=== PATIENT | female | born 1985 ===

== ENCOUNTER 2024-04-06 08:18 | Outpatient (REF) | payer OTHER, SELFPAY ==
--- NOTE | 2024-04-06 08:25 | EMG_ITS ---
Bilateral median and ulnar motor and sensory studies were performed. Bilateral radial and median and lateral antecubital sensory studies were performed and paraspinal muscles were tested with a needle. IMPRESSION: 1. 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 2. Mild bilateral ulnar nerve slowing across elbow. MD ZHANG Rose/FRANKIE / [id number]
== END 2024-04-06 08:19 | disposition home or self-care (01) ==
LOC: HO.NEURO 08:18
PROVIDERS: PCP Internal Medicine; Visit Provider Internal Medicine
DX: G56.03 Carpal tunnel syndrome, bilateral upper limbs (principal)
CPT/HCPCS: 95886; 95913

== ENCOUNTER 2025-03-28 13:42 | Outpatient (REF) | payer OTHER, SELFPAY ==
[2025-03-28 13:56] LABS: MANUAL DIFF FLAG NO
[2025-03-28 14:38] LABS: Basophils Absolute Auto 0.1 X10*3/uL (0.0-0.2); Basophils Percent Auto 0.8 % (0-2); Eosinophils Absolute Auto 0.1 X10*3/uL (0.0-0.4); Hematocrit 36.1 % (37.0-47.0); Hemoglobin 11.2 g/dl (12.0-16.0); Imm Gran Abs Auto 0.04 X10*3/uL (0.00-0.03); Imm Gran Pct Auto 0.6 % (0.0-0.4); Lymphocytes Percent Auto 14.4 % (20-40); Mean Corpuscular Hemoglobin 24.3 pg (27.0-33.0); Mean Corpuscular Volume 78.5 fL (80.0-98.0); Mean Platelet Volume 10.3 fL (9.4-12.3); Monocytes Absolute Auto 0.7 X10*3/uL (0.1-1.2); Monocytes Percent Auto 9.3 % (2-11); Neutrophils Absolute Auto 5.4 x10*3/uL (2.0-8.3); Neutrophils Percent Auto 73.9 % (45-73); Platelet Count 339 X10*3/uL (160-400); Red Cell Distribution Width 14.4 % (11.0-16.0); White Blood Count 7.2 X10*3/uL (4.8-10.8)
[2025-03-28 15:01] LABS: Rheumatoid Factor < 13.0 IU/mL (<15.0)
[2025-03-28 15:04] LABS: Alanine Aminotransferase 14 U/L (0-31); Albumin Level 4.1 g/dL (3.5-5.0); Alkaline Phosphatase 63 U/L (39-117); Anion Gap 13 (12-20); Aspartate Amino Transferase 20 U/L (5-31); Bilirubin Total 0.5 mg/dL (0.0-1.0); Blood Urea Nitrogen 14 mg/dL (9-16); Calcium 9.1 mg/dL (8.4-10.2); Carbon Dioxide 22 mmol/L (22-29); Chloride 109 mmol/L (96-108); Estimated Glomerular Filt Rate > 60; Glucose Random 97 mg/dL (60-115); Potassium 3.8 mmol/L (3.3-5.1); Sodium 140 mmol/L (135-145); Total Protein 7.3 g/dL (6.5-8.0)
--- OUTSIDE RECORDS SUMMARY | 2025-03-28 15:15 | XMS_ITS | Clinical Summary ---
Author Organization [facility] Address [address] [place] [address] Phone Care Team Providers Care Power Press Operator Name Role Phone Physician, No Pcp Primary Care Provider Unavaila ble Allergies Active Allergy Reactions Criticality Noted Date Comments Aspirin 12/10/2024 Social History Tobacco Use Types Packs/Day Years Used Date Smoking Tobacco: Never Smokeless Tobacco: Never Tobacco Cessation:Counseling Given: Not Answered Comments Unknown Sex and Gender Information Value Date Recorded Sex Assigned at Female 12/10/2024 8:11 PM EST Legal Sex Female 9:08 AM EST Gender Identity Female 12/10/2024 8:11 PM EST Sexual Orientation Straight 12/10/2024 8 :11 PM EST Obstetrics History Last Filed Vital Signs Vital Sign Reading Time Taken Comments Blood Pressure 106/64 12/10/2024 9:23 PM EST Pulse 76 12/10/2024 9:23 PM EST Temperature 36.8 ??C (98.2 ??F) 12/10/2024 9:23 PM ES T Respiratory Rate 16 12/10/2024 9:23 PM EST Oxygen Saturation 100% 12/10/2024 9:23 PM EST Inhaled Oxygen Concentration - - Weight 61.2 kg (135 lb) 12/10/2024 5:04 PM EST Height 160 cm (5' 3 ) 12/10/2024 5:04 PM EST Body Mass Index 23.91 12/10/2024 5:04 PM EST Plan of Treatment Health Maintenance Due Date Last Done Comments Breast Cancer Screening 1983 DTaP,Tdap,and Td Vaccines (1 - Tdap) 2002 Hepatitis B Vaccines (1 of 3 - 19+ 3-dose series) 2002 Cervical Cancer Screening: P ap Smear 2004 Depression Screening 10/27/2022 HIV Screening 10/27/2022 Hepatitis C Screening 10/27/2022 Social Influencers of Health Screening 10/27/2022 COVID-19 Vaccine (4 - 2023-2 5 season) 2024 12/21/2021, 04/04/2021, 02/28/2021 Influenza Vaccine (Season Ended) 2025 HIB Vaccines Aged Out No longer eligi ble based on patient's age to complete this topic HPV Vaccines Aged Out No longer eligi ble based on patient's age to complete this topic Hepatitis A Vaccines Aged Out No long er eligible based on patient's age to complete this topic IPV Vaccines Aged Out No longer eligi ble based on patient's age to complete this topic MMR Vaccines Aged Out No longer eligi ble based on patient's age to complete this topic Meningococcal ACWY Vaccine Aged Out N o longer eligible based on patient's age to complete this topic Meningococcal B Vaccine Aged Out No l onger eligible based on patient's age to complete this topic Pneumococcal Vaccine: Pediatrics (0 to 5 Years) and At-Risk Patients (6 to 64 Years) Aged Out No longer eligible b ased on patient's age to complete this topic RSV Immunization Patients Under 20 months Aged Out No longer eligible b ased on patient's age to complete this topic Varicella Vaccines Aged Out No longer eligible based on patient's age to complete this topic Insurance [employer] Care Teams Power Press Operator Relationship Specialty Start Date End Date Physician, No Pcp PCP - General 12/10/24
[2025-03-28 15:23] LABS: Erythrocyte Sedimentation Rate 12 MM/HR (0-20); Ferritin 18 ng/mL (10-250)
[2025-03-29 11:09] LABS: Anti Nuclear Antibody Screen NEGATIVE (NEGATIVE)
[2025-03-29 17:34] LABS: Cyclic Citrullinated Peptide <16 UNITS
== END 2025-03-28 13:43 | disposition home or self-care (01) ==
LOC: HO.LAB 13:42
PROVIDERS: PCP Internal Medicine; Visit Provider Internal Medicine
DX: Z00.00 Encounter for general adult medical examination without abnormal findings (principal); D50.8 Other iron deficiency anemias; F32.9 Major depressive disorder, single episode, unspecified; Z12.4 Encounter for screening for malignant neoplasm of cervix
CPT/HCPCS: 36415; 80053; 82728; 85025; 85652; 86038; 86200; 86431